=== PATIENT | male | born 2005 | race Caucasian/White ===

== ENCOUNTER 2024-05-26 10:29 | Observation (INO) | payer BC ==
[2024-05-26] MEDS ORDERED: Dexamethasone 4 MG/ML 5 ML MDV ONE (10:38)
[2024-05-26] MEDS ORDERED: ceFAZolin 2 GM Vial ONE (10:38)
[2024-05-26] MEDS ORDERED: fentaNYL 250 MCG/5 ML SDV ONE (10:38)
[2024-05-26] MEDS ORDERED: Lidocaine 1% 4 ML ONE (10:38)
[2024-05-26] MEDS ORDERED: Propofol 200 MG/20 ML SDV ONE (10:38)
[2024-05-26] MEDS ORDERED: Ondansetron 4 MG/2 ML SDV ONE (10:38)
[2024-05-26] MEDS ORDERED: Midazolam 1 MG/ML 2 ML SDV ONE (10:38)
[2024-05-26] MEDS ORDERED: Rocuronium 50 MG/5 ML Vial ONE (10:38)
[2024-05-26] MEDS ORDERED: Ketorolac 30 MG/ML SDV ONE (10:38)
[2024-05-26] MEDS ORDERED: cefTRIAXone 500 MG Vial IVPUSH ONE (10:54)
[2024-05-26] MEDS: Sodium Chloride 0.9% 10 ML Syringe FLUSH PRN (11:10)
[2024-05-26] MEDS: Piperacillin/Tazobactam 4.5 GM in Sodium Chloride 0.9% 100 ML IV ONE (11:10)
[2024-05-26] MEDS ORDERED: Sugammadex Sodium 200 MG/2 ML VIAL IV ONE (11:26)
[2024-05-26] MEDS ORDERED: dexmedeTOMIDine HCl 200 MCG/2 ML SDV ONE (11:26)
[2024-05-26] MEDS ORDERED: Lactated Ringers 1,000 ML ONE (11:29)
[2024-05-26] MEDS ORDERED: Naloxone 0.4 MG/ML SDV IVPUSH PRN (11:33)
[2024-05-26] MEDS: Morphine 4 MG/ML Syringe IVPUSH ONE (11:46)
[2024-05-26] MEDS: Ondansetron 4 MG/2 ML SDV IVPUSH ONE (11:47)
[2024-05-26] MEDS: Lactated Ringers 1,000 ML IV ONE ×2 (12:06→16:20)
[2024-05-26] MEDS: Lidocaine 1% with EPINEPHrine 1:100,000 20 ML MDV ONE (12:39)
[2024-05-26] MEDS: Bupivacaine 0.25% 10 ML SDV ONE (12:39)
[2024-05-26] MEDS: EPINEPHrine 1 MG/ML SDV ONE (12:39)
[2024-05-26] MEDS ORDERED: fentaNYL 100 MCG/2 ML SDV IVPUSH PRN (12:44)
[2024-05-26] MEDS ORDERED: Ondansetron 4 MG/2 ML SDV IVPUSH PRN (12:44)
[2024-05-26] MEDS ORDERED: HYDROmorphone 0.5 MG/0.5 ML Syringe IVPUSH PRN (12:44)
[2024-05-26] MEDS ORDERED: Acetaminophen 325 MG Tab PO PRN (13:56)
[2024-05-26] MEDS ORDERED: Acetaminophen/oxyCODONE 325-5 MG Tab PO PRN (13:56)
[2024-05-26] MEDS ORDERED: Morphine 2 MG/ML SYRINGE IVPUSH PRN (13:56)
[2024-05-26] MEDS ORDERED: Ondansetron 4 MG/2 ML SDV IV PRN (13:56)
[2024-05-26] MEDS: metroNIDAZOLE/Normal Saline 500 MG in Premix Bag 1 BAG IV SCH (16:20)
[2024-05-26] MEDS: cefTRIAXone 1 GM in Sodium Chloride 0.9% 100 ML IV ONE (16:20)
[2024-05-26] MEDS: Dextrose 5%-0.45% NaCl 1,000 ML IV SCH (19:41)
[2024-05-27 06:42] LABS: HEMATOCRIT 41.4 % (42.0-52.0); HEMOGLOBIN 13.9 gm/dl (14.0-18.0); MEAN CORPUSCULAR HEMOGLOBIN 28.5 pg (28.0-32.0); MEAN CORPUSCULAR HGB CONC 33.6 g/dl (32.0-36.0); MEAN PLATELET VOLUME 10.9 fl (9.4-12.4); PLATELET COUNT,PLT 261 K/mm3 (150-400); RED BLOOD CELL COUNT 4.87 M/mm3 (4.52-5.90); WHITE BLOOD CELL COUNT,WBC 19.59 K/mm3 (4.5-13.5)
[2024-05-27 07:26] LABS: BAND PERCENT MAN 2 % (0-10); BASOPHILS PERCENT MAN 0 (0.2-1.2); EOSINOPHILS PERCENT MAN 0 % (0.8-7.0); LYMPHOCYTES % ATYPICAL MANUAL 0 %; LYMPHOCYTES PERCENT MAN 9 % (20-40); MONOCYTES PERCENT MAN 3 % (2-10); PLATELET COUNT ESTIMATE ADEQUATE
== END 2024-05-27 10:29 | disposition home or self-care (01) ==
LOC: JD.ED 10:29 → JD.SDS 11:57 → JD.MS 14:30 → JD.SDS 14:50 → JD.MS 14:51
PROVIDERS: ADMIT Surgery; ATTEND Surgery
DX: K35.80 Unspecified acute appendicitis (principal)
CPT/HCPCS: 36415; 44970; 85007; 85027; 96365; 96375; 99284; J0171; J0665; J0690; J1100; J1885; J2250; J2270; J2405; J2543; J2704; J3010; J3490; J7120; J7799; 00840; 99140; 99285